=== PATIENT | female | born 1970 | race American Indian/Alaskan Native ===

== ENCOUNTER 2020-07-18 14:08 | Outpatient (CLI) | payer OTHER ==
--- NOTE | 2020-07-21 08:53 | Ultrasound Report ---
LEFT DIGITAL DIAGNOSTIC MAMMOGRAM WITH CAD CONVENTIONAL, 07/18/2020 LEFT LIMITED BREAST ULTRASOUND CLINICAL INFORMATION / INDICATION: Previous left palpable abnormality which has resolved TECHNIQUE: Digital left mammographic imaging was performed. Limited ultrasound was performed. This ex amination was interpreted with the benefit of Computer-Aided Detection (CAD) analysis. COMPARISON: Outside bilateral mammograms 12/25/2018 and prior FINDINGS: Breast Density: The breasts are heterogeneously dense, which may obscure small masses. MAMMOGRAPHIC FINDINGS: Mildly more density with a suggestion of nodularity is now seen in the central medial left breast at mid depth. ULTRASOUND FINDINGS: Targeted ultrasound evaluation was performed of the area of interest. In the 9 :00 position, 2 cm from the nipple, in the area of radiographic change, 2 adjacent hypoechoic lesions are seen which are either solid or complex cystic. The more anterior lesion measures 12 mm and has a more cystic appearance but with irregular thickened jiang and an irregular margin. Mild shadowing is seen. The adjacent more posterior lesion measures 11 mm and appears to be solid. No significant shad owing is seen but margins are microlobulated. Neither show significant vascularity. At 2 areas in the retroareolar region at 3:00 there are mildly prominent ducts showing focal medium e chogenicity intraductal nodules each measuring approximately 2 mm and without vascularity or shadowin g. I do not see generalized debris throughout the ductal system. In the 2:00 position 5 cm from the nipple an irregular hypoechoic solid-appearing nodule is seen whic h is wider than tall and shows mild shadowing. Borders are microlobulated. This has a maximal diamete r of 6 mm. In the 1:00 position, 5 cm from the nipple, a slightly taller than wide 3 mm hypoechoic solid-appeari ng irregularly bordered lesion is seen. An adjacent similar lesion is noted which measures 5 mm and i s taller than wide with mild shadowing. Neither show vascularity. In the 12:00 position, 5 cm from the nipple, a wider than tall 6 mm benign-appearing hypoechoic solid nodule is noted. IMPRESSION: There are multiple areas of concern in the left breast which are much more visible by son ography than mammography as detailed above. I am particularly concerned about the 2 adjacent lesions at 9:00 but additional concern is for the multiple smaller lesions including what appear to be intrad uctal nodules. The least worrisome abnormality is at 12:00. Given the multiplicity of lesions it may be worthwhile to obtain MR to help target ultrasound-guided biopsy on the most worrisome of the small er lesions. Certainly the adjacent lesions at 9:00 need biopsy and probably others. Follow up recommendation: See above BI-RADS Category 0: Incomplete. Needs additional imaging evaluation and/or prior mammograms for job etienne. A "normal" or negative report should not discourage follow up or biopsy of a clinically significant f inding. A written summary of these findings will be mailed to the patient. The patient will be entered into a mammography reporting system which will generate a reminder letter for the patient's next appointmen t at the appropriate interval. According to the [employer], yearly mammograms are recommended starting at age 40 and continuing as long as a woman is in good health. Breast MRI is recommended for women with an bala roximately 20-25% or greater lifetime risk of breast cancer, including women with a strong family his tory of breast or ovarian cancer and women who have been treated for Hodgkin's disease. Signer Name: Israel Quinteros MD Signed: 07/21/2020 8:49 AM Workstation Name: [id number]
== END 2020-07-18 14:09 | disposition home or self-care (01) ==
LOC: SPVWC 14:08
PROVIDERS: ATTEND Surgery
DX: N60.02 Solitary cyst of left breast (principal)

== ENCOUNTER 2020-08-16 14:20 | Outpatient (CLI) | payer OTHER ==
--- NOTE | 2020-08-16 16:38 | Magnetic Resonance Report ---
Bilateral breast MR without and with contrast. History: Abnormal findings noted on prior imaging. Comparison: 07/18/2020, 12/29/2019. Technique: Multiplanar multisequence MR images of the breast were obtained before and after the intra venous administration of 17 mL of MultiHance contrast agent. Post processing analysis and review was performed on a separate computer workstation. Findings: Breast composition is heterogenously dense. There is marked background parenchymal enhancement which along with the presence of multiple scattered enhancing foci decreases the sensitivity of breast MRI. RIGHT BREAST: There is a 7 x 5 x 5 mm oval enhancing lesion within the right slightly lower outer ant erior breast. This is best seen on image 779 of [id number]. Multiple scattered cysts are present throughout the right breast. LEFT BREAST: Area of suspected non masslike enhancement measuring 2.9 x 0.8 x 1.1 cm is noted within the left lateral breast from about the 3:00 to 4:00 position. This may correspond with the sonographi c finding seen at 3:00 position which appears intraductal. An ultrasound-guided biopsy of this findin g is recommended. No additional discrete enhancing mass is identified within limitations of this exam . There are multiple scattered cysts throughout the left breast. No abnormal axillary or internal mammary lymph nodes. Impression: 1. Questional area of non masslike enhancement within the left breast from the 3:00 to the 4:00 posi tion. This is suspected to be in the region of a sonographic finding seen at the 3:00 position on the recent ultrasound. The sonographic appearance is suggestive of an intraductal lesion and an ultrasou nd-guided biopsy of this is recommended. 2. There is a 7 mm oval enhancing mass within the right breast at about the 7:00 to 8:00 position, 2 cm from the nipple. A targeted ultrasound is recommended for further evaluation with subsequent ultr asound-guided biopsy if a correlate is identified. If no sonographic correlate is identified, an MRI guided biopsy would be recommended. 3. No definite MRI correlate to the two findings seen in the left breast at the 9:00 position for whi ch ultrasound-guided biopsy has been recommended previously. 4. Multiple bilateral cysts, some which appear complicated and debris filled. This could explain the multiple findings seen on the recent left breast ultrasound. There is marked background parenchymal enhancement which along with the presence of multiple scattere d enhancing foci decreases the sensitivity of this exam. BIRADS 4: Suspicious abnormality. A normal MRI does not exclude the presence of some forms of breast malignancy as literature reports s uggest that some forms of ductal carcinoma in situ or lobular carcinoma, particularly, may not be det ected on MRI. The sensitivity and specificity of MRI for cancers under 5 mm may be reduced. MRI does not replace the recommendation for annual conventional mammographic evaluation and should be used as an adjunct to mammography and physical examination as necessary. Signer Name: Kelton Slade MD Signed: 08/16/2020 4:33 PM Workstation Name: [id number]
== END 2020-08-16 14:21 | disposition home or self-care (01) ==
LOC: SPVIMAG 14:20
PROVIDERS: ATTEND Surgery
DX: N60.01 Solitary cyst of right breast (principal); N60.02 Solitary cyst of left breast; N63.13 Unspecified lump in the right breast, lower outer quadrant
CPT/HCPCS: A9577; C8908; 77049

== ENCOUNTER 2020-08-30 09:09 | Outpatient (CLI) | payer OTHER ==
--- NOTE | 2020-08-30 11:20 | Mammography Report ---
RIGHT DIAGNOSTIC MAMMOGRAM INDICATION: Right breast lesion at the 9:00 position. COMPARISON: Ultrasound performed earlier the same day and MRI 08/16/2020. FINDINGS: Right breast CC and LM projection mammograms were obtained. These document a U-shaped biops y marker at the 9:00 location. This is in the expected region of previously noted ultrasound and MRI finding. No mammographic correlate was ever identified. IMPRESSION: Accurate placement of U shaped biopsy marker at site of right breast biopsy at the 9:00 periareolar l ocation. BI-RADS Category 4: Suspicious for Malignancy. Signer Name: Kelton Slade MD Signed: 08/30/2020 11:16 AM Workstation Name: [id number]
--- NOTE | 2020-09-01 07:38 | Ultrasound Report ---
ULTRASOUND-GUIDED CORE NEEDLE BIOPSY Right BREAST WITH CLIP PLACEMENT COMPARISON: 08/16/2020 INDICATION: Abnormal enhancement noted in the right breast on the recent MRI. FINDINGS: A targeted ultrasound of the right breast medial breast was performed. This shows an 8 x 6 x 11 mm il l-defined oval hypoechoic lesion located at the 9:00 periareolar location. This would appear to corre spond with the finding seen on the recent MRI. An ultrasound-guided biopsy will be performed. Informed consent was obtained. The lesion within right breast at the 9:00 periareolar location was id entified with ultrasound. The overlying skin was cleansed with chloro prep and local anesthesia was o btained with a 1% lidocaine solution. Under ultrasound guidance a 14-gauge spring loaded core biopsy needle was advanced to the lesion. A total of 5 core samples were obtained. A U-shaped biopsy marker was placed to jeb the site of the biopsy. Specimen samples were placed in formalin and sent to patho logy for analysis. Patient tolerated the procedure well and no immediate complications were identified. IMPRESSION: Technically successful ultrasound-guided core biopsy of right breast lesion at the 9:00 periareolar l ocation with placement of a U-shaped biopsy marker. Note: The patient has a separate area in the left breast with for which she is scheduled to return on 09/01/2020 for biopsy. An addendum will be added to this report once pathology results are available. Signer Name: Kelton Slade MD Signed: 08/30/2020 1:08 PM Workstation Name: [id number]
== END 2020-08-30 09:10 | disposition home or self-care (01) ==
LOC: SPVWC 09:09
PROVIDERS: ATTEND Surgery
DX: N63.11 Unspecified lump in the right breast, upper outer quadrant (principal); R92.8 Other abnormal and inconclusive findings on diagnostic imaging of breast; N64.89 Other specified disorders of breast
CPT/HCPCS: 88305

== ENCOUNTER 2020-09-01 12:11 | Outpatient (CLI) | payer OTHER ==
--- NOTE | 2020-09-01 15:51 | Mammography Report ---
ULTRASOUND GUIDED LEFT BREAST BIOPSY, 09/01/2020 R/L DIAGNOSTIC MAMMOGRAM CLINICAL INFORMATION / INDICATION: POST US BX. Patient with a 2 mm likely intraductal nodule in the l eft breast, here for biopsy COMPARISON: Ultrasound from 08/30/2020 PROCEDURE: Risks, benefits, and indications to the procedure were discussed with the patient in detail, includin g bleeding, infection, hematoma formation, and inadequate tissue sampling. The patient agreed to proc eed with both verbal and written consent. A timeout procedure was performed with two patient identifi ers. The breast was prepped and draped in the usual sterile fashion. Lidocaine 1% was used for local anest hesia. Under direct ultrasound guidance, 2 12-gauge core samples were obtained of the left breast nod ule measuring 2 mm. A biopsy marker was then placed. Biopsy device was removed and hemostasis achiev ed with manual pressure. A sterile dressing was applied to the skin. The patient tolerated the procedure without difficulty. No complications were encountered. Postbiopsy instructions were discussed with the patient and given in writing. Specimens were sent to pathology. The patient was then sent for a confirmatory mammogram to demonstrate adequate clip positioning in th e area in question. IMPRESSION: 1. Technically successful ultrasound guided left breast nodule breast biopsy. 2. Satisfactory positioning of the biopsy clip on the post procedure mammogram. Biopsy results are pending and will be reported in an addendum. Signer Name: Rasheed Beaver MD Signed: 09/01/2020 3:46 PM Workstation Name: [id number]
--- NOTE | 2020-09-05 09:50 | Ultrasound Report ---
ULTRASOUND GUIDED LEFT BREAST BIOPSY, 09/01/2020 R/L DIAGNOSTIC MAMMOGRAM CLINICAL INFORMATION / INDICATION: ABNORMAL MAMMOGRAM. Patient with a 2 mm likely intraductal nodule in the left breast, here for biopsy COMPARISON: Ultrasound from 08/30/2020 PROCEDURE: Risks, benefits, and indications to the procedure were discussed with the patient in detail, includin g bleeding, infection, hematoma formation, and inadequate tissue sampling. The patient agreed to proc eed with both verbal and written consent. A timeout procedure was performed with two patient identifi ers. The breast was prepped and draped in the usual sterile fashion. Lidocaine 1% was used for local anest hesia. Under direct ultrasound guidance, 2 12-gauge core samples were obtained of the left breast nod ule measuring 2 mm. A biopsy marker was then placed. Biopsy device was removed and hemostasis achiev ed with manual pressure. A sterile dressing was applied to the skin. The patient tolerated the procedure without difficulty. No complications were encountered. Postbiopsy instructions were discussed with the patient and given in writing. Specimens were sent to pathology. The patient was then sent for a confirmatory mammogram to demonstrate adequate clip positioning in th e area in question. IMPRESSION: 1. Technically successful ultrasound guided left breast nodule breast biopsy. 2. Satisfactory positioning of the biopsy clip on the post procedure mammogram. Biopsy results are pending and will be reported in an addendum. Signer Name: Rasheed Beaver MD Signed: 09/05/2020 9:45 AM Workstation Name: [id number]
== END 2020-09-01 12:12 | disposition home or self-care (01) ==
LOC: US 12:11
PROVIDERS: ATTEND Surgery
DX: N60.02 Solitary cyst of left breast (principal); R92.8 Other abnormal and inconclusive findings on diagnostic imaging of breast; N64.89 Other specified disorders of breast
CPT/HCPCS: 88305

== ENCOUNTER 2021-01-02 08:37 | Outpatient (CLI) | payer OTHER ==
--- NOTE | 2021-01-02 11:04 | Mammography Report ---
DIGITAL DIAGNOSTIC MAMMOGRAM WITH CAD, WITH TOMOSYNTHESIS -- 01/02/2021 INDICATION: The patient has a history of surgical biopsy of the left breast with atypical findings. T his is a short-term follow-up evaluation. She reports no new breast symptoms. TECHNIQUE: Digital bilateral mammographic imaging was performed. This examination was interpreted with the benefit of Computer-aided Detection analysis. COMPARISON: Left breast needle localization, 09/20/2020. Diagnostic mammogram, 09/01/2020. Diagnostic m ammogram, 08/30/2020. Screening mammogram, 12/29/2019 FINDINGS: Breast Density: The breasts are heterogeneously dense, which may obscure small masses. There is no evidence of dominant mass, suspicious calcifications or architectural distortion in eithe r breast. New postsurgical changes noted in the lateral subareolar left breast. There is a biopsy mar ker in the right breast. IMPRESSION: Follow up recommendation: Routine yearly BI-RADS Category 2: Benign. A "normal" or negative report should not discourage follow up or biopsy of a clinically significant f inding. A written summary of these findings will be mailed to the patient. The patient will be entered into a mammography reporting system which will generate a reminder letter for the patient's next appointmen t at the appropriate interval. According to the [employer], yearly mammograms are recommended starting at age 40 and continuing as long as a woman is in good health. Breast MRI is recommended for women with an bala roximately 20-25% or greater lifetime risk of breast cancer, including women with a strong family his tory of breast or ovarian cancer and women who have been treated for Hodgkin's disease. Signer Name: Maryjane Gabriel MD Signed: 01/02/2021 11:00 AM Workstation Name: [id number]
== END 2021-01-02 08:38 | disposition home or self-care (01) ==
LOC: SPVWC 08:37
PROVIDERS: ATTEND Surgery
DX: N60.82 Other benign mammary dysplasias of left breast (principal); N60.81 Other benign mammary dysplasias of right breast; R92.8 Other abnormal and inconclusive findings on diagnostic imaging of breast; N64.89 Other specified disorders of breast
CPT/HCPCS: 77066; G0279